=== PATIENT | female | born 1995 | race Caucasian/White ===

== ENCOUNTER 2018-10-09 06:54 | Day surgery (SDC) | payer OTHER ==
[2018-10-09] MEDS ORDERED: METOCLOPRAMIDE 10 MG INJ (09:19)
[2018-10-09] MEDS ORDERED: PROPOFOL 20 ML (09:19)
[2018-10-09] MEDS ORDERED: ROCURONIUM 50 MG INJ (09:19)
[2018-10-09] MEDS ORDERED: CEFAZOLIN 1 GM INJ (09:19)
[2018-10-09] MEDS ORDERED: FENTAnyl 50 MCG/ML VIAL (09:19)
[2018-10-09] MEDS ORDERED: MIDAZOLAM 1 MG/ML 2 ML INJ (09:19)
[2018-10-09] MEDS ORDERED: ONDANSETRON 4 MG INJ (09:19)
[2018-10-09] MEDS ORDERED: DEXAMETHASONE 4 MG/ML 5 ML INJ (09:20)
[2018-10-09] MEDS ORDERED: KETOROLAC 30 MG INJ (09:20)
[2018-10-09] MEDS ORDERED: HYDROmorphONE 1 MG/5 ML IV SYRINGE IV ×3 (09:30)
[2018-10-09] MEDS ORDERED: OXYCODONE/ACETAMINOPHEN (5/325) TAB PO (09:30)
[2018-10-09] MEDS ORDERED: FENTAnyl 50 MCG/ML VIAL IV ×3 (09:30)
[2018-10-09] MEDS ORDERED: ONDANSETRON 4 MG INJ IV (09:30)
[2018-10-09] MEDS ORDERED: LABETALOL HCL 20MG INJ IV (09:30)
[2018-10-09] MEDS ORDERED: DIPHENHYDRAMINE 50 MG INJ IV (09:30)
[2018-10-09] MEDS ORDERED: EPHEDrine SULFATE 50 MG/5 ML SYG IV (09:30)
[2018-10-09] MEDS ORDERED: METOCLOPRAMIDE 10 MG INJ IV (09:30)
[2018-10-09] MEDS ORDERED: MEPERIDINE 25 MG INJ IV (09:30)
[2018-10-09] MEDS: LIDOCAINE 1%/EPI 30 ML INJ (09:42)
[2018-10-09] MEDS: BACITRACIN/POLYMYXIN 28.35 GM OINT TOP (09:42)
[2018-10-09] MEDS: PHENYLephrine 0.5% 15 ML NAS SPRAY (09:42)
[2018-10-09] MEDS ORDERED: GLYCOPYRROLATE 0.4 MG INJ (09:51)
[2018-10-09] MEDS ORDERED: NEOSTIGMINE 3 MG/3 ML SYRINGE (09:51)
== END 2018-10-09 12:20 | disposition home or self-care (01) ==
LOC: SDS 06:54
DX: J34.2 Deviated nasal septum (principal); J34.3 Hypertrophy of nasal turbinates; J34.89 Other specified disorders of nose and nasal sinuses
CPT/HCPCS: 20912; 88300; 93005

== ENCOUNTER 2018-10-09 18:28 | Emergency (ER) | payer SELFPAY, OTHER | END 2018-10-09 20:00 | disposition left against medical advice (07) | LOC: E/R 18:28 | DX: Z53.21 Procedure and treatment not carried out due to patient leaving prior to being seen by health care provider (principal) ==